=== PATIENT | male | born 1950 | race Caucasian/White ===

== ENCOUNTER 2018-09-19 13:34 | Emergency (ER) | payer OTHER ==
[~2018-09-19] VITALS: Ht 170.2 cm; Wt 81.7 kg
[2018-09-19] MEDS ORDERED: CENTRUM SILVER1 EAC2 PO (13:50)
[2018-09-19] MEDS ORDERED: BACTRIM DS TAB1 EACH PO (15:15)
[2018-09-19 15:38] VITALS: BP 172/70
== END 2018-09-19 15:38 | disposition left against medical advice (07) ==
LOC: M.ERS 13:34
DX: N17.9 Acute kidney failure, unspecified (principal); Z85.46 Personal history of malignant neoplasm of prostate; Z95.5 Presence of coronary angioplasty implant and graft